=== PATIENT | female | born 1990 | race African-American/Black ===

== ENCOUNTER → 2021-01-13 | Outpatient (CLI) | payer BC, SELFPAY | LOC: US 09:27 | DX: R10.11 Right upper quadrant pain (principal) | CPT/HCPCS: 76705 ==

== ENCOUNTER 2022-06-16 16:56 | Emergency (ER) | payer OTHER | END 2022-06-16 19:50 | disposition home or self-care (01) | LOC: ER1 16:56 | DX: S20.212A Contusion of left front wall of thorax, initial encounter (principal); V49.9XXA Car occupant (driver) (passenger) injured in unspecified traffic accident, initial encounter | CPT/HCPCS: 73000; 99283 ==